=== PATIENT | female | born 1990 | race Two or more races ===

== ENCOUNTER 2020-12-07 19:48 | Emergency (ER) | payer SELFPAY ==
[~2020-12-07] VITALS: Ht 157.5 cm; Wt 100.7 kg
[2020-12-07] MEDS ORDERED: ACETAMINOPHEN 325 MG TAB PO ONE (22:15)
[2020-12-07 22:35] LABS: Basophils # (auto) 0 10 ^3/uL (0-0.2); Basophils % (auto) 0.3 % (0.0-2.0); Eosinophils # (auto) 0.1 10 ^3/uL (0-0.8); Eosinophils % (auto) 0.7 % (0.0-7.0); Hemoglobin 14.3 g/dL (12.2-16.2); Lymphocytes # (auto) 2.2 10 ^3/uL (0.4-5.4); Lymphocytes % (auto) 20.1 % (10.0-50.0); Mean Corpuscular Hemoglobin 30.8 pg (28.0-32.0); Mean Corpuscular Hgb Conc. 34.9 g/dL (32.0-36.0); Mean Corpuscular Volume 88.3 fL (80.0-100.0); Monocytes # (auto) 0.6 10 ^3/uL (0-1.3); Monocytes % (auto) 5.3 % (0.0-12.0); Neutrophils # (auto) 8.2 10 ^3/uL (1.6-8.6); Neutrophils % (auto) 73.6 % (37.0-80.0); Nucleated Red Blood Cells % 0.1 %; Red Blood Cells 4.64 10^6/uL (4.0-5.20); Red Cell Distribution Width 13.6 % (11.8-14.3); White Blood Cell 11.2 10^3/uL (4.4-10.8)
[2020-12-07 22:55] LABS: Calcium 8.9 mg/dL (8.5-10.1); Potassium 3.8 mmol/L (3.5-5.1)
[2020-12-07 22:59] LABS: BUN/Creatinine Ratio 10.9; Bilirubin, Total 0.7 mg/dL (0.2-1.0); Total Protein 7.3 g/dL (6.4-8.2)
[2020-12-08 00:23] LABS: Urine Bacteria NONE SEEN /hpf (None Seen); Urine Blood 3+ /uL (Negative); Urine Mucus FEW (None Seen); Urine Specific Gravity 1.015 (1.001-1.035); Urine WBC 30 /hpf (0 - 5)
[2020-12-08] MEDS ORDERED: LACTATED RINGER'S 1,000 ML IV ONE (00:45)
[2020-12-08 02:01] LABS: INR 0.97 (0.9-1.15); Partial Thromboplastin Time 22.6 sec (23.0-31.2)
[2020-12-08 05:49] VITALS: BP 113/72
== END 2020-12-08 05:52 | disposition home or self-care (01) ==
LOC: EDBD → ER 19:52
DX: O03.4 Incomplete spontaneous abortion without complication (principal); Z20.822 Contact with and (suspected) exposure to COVID-19
CPT/HCPCS: 36415; 76805; 80053; 81001; 84702; 85025; 85610; 85730; 86850; 86900; 86901; 87426; 96360; 96361

== ENCOUNTER 2020-12-08 12:16 | Inpatient (IN) | payer MEDICAID, OTHER ==
[~2020-12-08] VITALS: Ht 33 cm; Wt 0.5 kg
[2020-12-08] MEDS ORDERED: LACT. RINGERS/OXYTOCIN 20UNITS 1,000 ML IV ONE (13:00)
[2020-12-08] MEDS ORDERED: SODIUM CHLORIDE 0.9% 500 ML IV ONE (13:15)
[2020-12-08 13:32] LABS: Basophils # (auto) 0 10 ^3/uL (0-0.2); Basophils % (auto) 0.2 % (0.0-2.0); Eosinophils # (auto) 0 10 ^3/uL (0-0.8); Eosinophils % (auto) 0.3 % (0.0-7.0); Hematocrit 42.3 % (36.0-46.0); Hemoglobin 14.5 g/dL (12.2-16.2); Lymphocytes # (auto) 2.4 10 ^3/uL (0.4-5.4); Mean Corpuscular Hemoglobin 30.2 pg (28.0-32.0); Mean Corpuscular Hgb Conc. 34.3 g/dL (32.0-36.0); Mean Corpuscular Volume 88.3 fL (80.0-100.0); Monocytes # (auto) 0.7 10 ^3/uL (0-1.3); Monocytes % (auto) 5.5 % (0.0-12.0); Neutrophils # (auto) 8.9 10 ^3/uL (1.6-8.6); Nucleated Red Blood Cells % 0.1 %; Red Cell Distribution Width 13.4 % (11.8-14.3); White Blood Cell 12.1 10^3/uL (4.4-10.8)
[2020-12-08 13:45] LABS: INR 0.99 (0.9-1.15)
[2020-12-08 13:50] LABS: Calcium 9.1 mg/dL (8.5-10.1); Potassium 3.6 mmol/L (3.5-5.1)
[2020-12-08 13:54] LABS: BUN/Creatinine Ratio 6.3; Total Protein 7.5 g/dL (6.4-8.2)
[2020-12-08] MEDS ORDERED: WITCH HAZEL-GLYCERIN PAD TOP PRN (15:30)
[2020-12-08] MEDS ORDERED: ACETAMINOPHEN 325 MG TAB PO PRN (15:30)
[2020-12-08] MEDS ORDERED: DERMOPLAST 60ML BOTTLE TOP PRN (15:30)
[2020-12-08] MEDS ORDERED: PHISODERM TOP SOLN 240ML BTL TOP PRN (15:30)
[2020-12-08] MEDS: IBUPROFEN 600 MG TAB PO PRN ×2 (16:14→19:51)
[2020-12-08] MEDS: ceFAZolin 1GM/50ML 50 ML IV SCH (16:24)
[2020-12-08 19:30] VITALS: BP 114/61
[2020-12-08] MEDS ORDERED: ZOLPIDEM TARTRATE 5 MG TAB PO ONE (22:15)
[2020-12-08 22:45] VITALS: BP 98/61
[2020-12-09] MEDS: ceFAZolin 1GM/50ML 50 ML IV SCH ×2 (00:14→07:06)
[2020-12-09 03:17] VITALS: BP 99/57
[2020-12-09 07:00] VITALS: BP 106/64
[2020-12-09 07:07] LABS: RPR Non Reactive (Non Reactive)
[2020-12-09] MEDS: IBUPROFEN 600 MG TAB PO PRN (07:07)
== END 2020-12-09 11:44 | disposition home or self-care (01) | DRG 560 ==
LOC: ER 12:16 → LDRP 14:20 → EDBD 14:20 → LDRP 14:35 → ER 14:35
PROVIDERS: ADMIT Obstetrics & Gynecology; ATTEND Obstetrics & Gynecology
PROC: 10E0XZZ Delivery of Products of Conception, External Approach (ICD-10-PCS; principal; 2020-12-08)
DX: O03.9 Complete or unspecified spontaneous abortion without complication (principal); Z37.9 Outcome of delivery, unspecified; Z3A.19 19 weeks gestation of pregnancy
CPT/HCPCS: 36415; 59409; 80053; 85025; 85610; 85730; 86592; 86703; 86762; 86850; 86900; 86901; 87340; 94760; 96360; 96361; 96365; 96366; G0378; J0690; J2590

== ENCOUNTER → 2021-09-11 | Outpatient (CLI) | payer MEDICAID ==
[2021-09-11 09:58] LABS: Basophils # (auto) 0 10 ^3/uL (0-0.2); Basophils % (auto) 0.3 % (0.0-2.0); Eosinophils # (auto) 0.1 10 ^3/uL (0-0.8); Eosinophils % (auto) 0.8 % (0.0-7.0); Hematocrit 39.9 % (36.0-46.0); Hemoglobin 13.6 g/dL (12.2-16.2); Lymphocytes # (auto) 1.8 10 ^3/uL (0.4-5.4); Lymphocytes % (auto) 23.3 % (10.0-50.0); Mean Corpuscular Hemoglobin 30.2 pg (28.0-32.0); Mean Corpuscular Volume 88.6 fL (80.0-100.0); Monocytes # (auto) 0.3 10 ^3/uL (0-1.3); Monocytes % (auto) 4.3 % (0.0-12.0); Neutrophils # (auto) 5.4 10 ^3/uL (1.6-8.6); Neutrophils % (auto) 71.3 % (37.0-80.0); Red Cell Distribution Width 13.4 % (11.8-14.3); White Blood Cell 7.6 10^3/uL (4.4-10.8)
[2021-09-11 10:53] LABS: Amphetamine Screen, Urine NEGATIVE (NEGATIVE); Barbiturate Scree,Urine NEGATIVE (NEGATIVE); Benzodiazephine Screen, Urine NEGATIVE (NEGATIVE); Cannabinoid Screen, Urine NEGATIVE (NEGATIVE); Cocaine Screen, Urine NEGATIVE (NEGATIVE); Opiate Scree,Urine NEGATIVE (NEGATIVE); Phencyclidine Screen, Urine NEGATIVE (NEGATIVE)
[2021-09-12 06:06] LABS: RPR Non Reactive (Non Reactive)
== END | disposition home or self-care (01) ==
LOC: LAB 09:19
PROVIDERS: ATTEND Obstetrics & Gynecology
DX: Z34.80 Encounter for supervision of other normal pregnancy, unspecified trimester (principal); Z30.430 Encounter for insertion of intrauterine contraceptive device; Z11.3 Encounter for screening for infections with a predominantly sexual mode of transmission; Z36.0 Encounter for antenatal screening for chromosomal anomalies; N39.0 Urinary tract infection, site not specified
CPT/HCPCS: 36415; 80307; 83036; 84112; 84144; 84702; 85025; 86592; 86703; 86850; 86900; 86901; 87086; 87340

== ENCOUNTER → 2021-09-28 | Outpatient (CLI) | payer MEDICAID | END | disposition home or self-care (01) | LOC: LAB 07:13 | PROVIDERS: ATTEND Obstetrics & Gynecology | DX: Z34.80 Encounter for supervision of other normal pregnancy, unspecified trimester (principal); Z11.3 Encounter for screening for infections with a predominantly sexual mode of transmission; Z30.430 Encounter for insertion of intrauterine contraceptive device; Z36.0 Encounter for antenatal screening for chromosomal anomalies; N39.0 Urinary tract infection, site not specified | CPT/HCPCS: 82951 ==

== ENCOUNTER 2021-10-27 10:37 | Observation (INO) | payer MEDICAID ==
[~2021-10-27] VITALS: Ht 154.9 cm; Wt 104.3 kg
[2021-10-27] MEDS ORDERED: ceFAZolin 1GM/50ML 50 ML IV ONE ×2 (12:15→12:17)
[2021-10-27] MEDS ORDERED: LACTATED RINGER'S 1,000 ML IV ONE ×2 (12:15→14:45)
[2021-10-27] MEDS ORDERED: TERBUTALINE SULFATE 1 MG/ML 1ML VIAL SC SCH (12:15)
[2021-10-27] MEDS ORDERED: PREN-96 PO (16:30)
[2021-10-27 16:38] LABS: Urine Bacteria NONE SEEN /hpf (None Seen); Urine Blood Negative /uL (Negative); Urine Mucus FEW (None Seen); Urine Specific Gravity 1.029 (1.001-1.035); Urine WBC 13 /hpf (0 - 5)
[2021-10-27 16:59] LABS: Amphetamine Screen, Urine NEGATIVE (NEGATIVE); Barbiturate Scree,Urine NEGATIVE (NEGATIVE); Benzodiazephine Screen, Urine NEGATIVE (NEGATIVE); Cannabinoid Screen, Urine NEGATIVE (NEGATIVE); Cocaine Screen, Urine NEGATIVE (NEGATIVE); Opiate Scree,Urine NEGATIVE (NEGATIVE); Phencyclidine Screen, Urine NEGATIVE (NEGATIVE)
== END 2021-10-27 12:09 | disposition home or self-care (01) ==
LOC: LDRP 10:37 → UNDOADMOB 10:37 → LDRP 10:52
PROVIDERS: ADMIT Obstetrics & Gynecology; ATTEND Obstetrics & Gynecology
DX: O60.02 Preterm labor without delivery, second trimester (principal); Z20.822 Contact with and (suspected) exposure to COVID-19; Z3A.26 26 weeks gestation of pregnancy; Z79.899 Other long term (current) drug therapy
CPT/HCPCS: 36415; 59025; 76805; 76817; 80307; 81001; 81002; 87426; 94760; 96360; 96361; 96372; G0378; J0690; J3105

== ENCOUNTER → 2021-10-27 | Outpatient (CLI) | payer MEDICAID ==
[~2021-10-27] MED LIST: PREN-96 PO
== END | disposition home or self-care (01) ==
LOC: LAB 08:49
PROVIDERS: ATTEND Obstetrics & Gynecology Obstetrics
DX: Z34.80 Encounter for supervision of other normal pregnancy, unspecified trimester (principal)
CPT/HCPCS: 36415; 86762; 87340